=== PATIENT | female | born 1980 | race Caucasian/White ===

== ENCOUNTER → 2021-04-01 | Day surgery (SDC) | payer OTHER ==
[~2021-04-01] VITALS: Ht 165.1 cm; Wt 74.8 kg
[~2021-04-01] MED LIST: ACETAMINOPHEN500 M1 PO; ALLEGRA ALLERG180 MG PO; COLACE100 MG PO; MELATONIN5 M2 PO; MOTRIN600 MG PO; OXY-IR 5MG5 MG PO; PHENERGAN12.5 M1 PO; PRILOSEC20 MG PO; PROZAC20 MG PO; XANAX0.25 MG PO
[2021-04-01 06:54] LABS: HCG (URINE) SCREEN NEGATIVE (NEGATIVE)
[2021-04-01 07:53] LABS: ALBUMIN 3.3 g/dL (3.4-5.0); BILIRUBIN - TOTAL 0.4 mg/dL (0.2-1.0); BUN/CREAT RATIO (CALC) 15.4 RATIO; CREATININE 0.65 mg/dL (0.51-0.95); GLOBULIN (CALCULATION) 3.1 g/dL; POTASSIUM 3.7 mmol/L (3.5-5.1); TOTAL PROTEIN 6.4 g/dL (6.4-8.2)
== END | disposition home or self-care (01) ==
LOC: FAS 06:38
PROVIDERS: Student in an Organized Health Care Education/Training Program
DX: K81.1 Chronic cholecystitis (principal); I10 Essential (primary) hypertension; K21.9 Gastro-esophageal reflux disease without esophagitis; F41.9 Anxiety disorder, unspecified; F32.9 Major depressive disorder, single episode, unspecified; Z88.8 Allergy status to other drugs, medicaments and biological substances; Z79.899 Other long term (current) drug therapy
CPT/HCPCS: 36415; 80053; 82150; 83690; 84703; J1170; J1644; J2001; J2250; J2405; J2704; J3010; J7120